=== PATIENT | male | born 1990 | race Caucasian/White ===

== ENCOUNTER 2016-05-02 16:27 | Emergency (ER) | payer OTHER ==
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
[2016-05-02] MEDS ORDERED: DIPH/PERTUSS(ACELL)/TETANUS VAC/PF 0.5 ML SYR (>=10YO) IM ONE (16:51)
[2016-05-02] MEDS ORDERED: OXYCODONE-ACETAMINOPHEN 5-325 MG TABLET PO ONE (16:51)
[2016-05-02] MEDS ORDERED: SILVER SULFADIAZINE 1% CREAM 50 GM TP ONE (18:29)
[2016-05-02] MEDS ORDERED: FENTANYL CITRATE INJ/PF 100 MCG/2 ML AMPUL IV ONE (18:29)
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
[2016-05-02 20:04] VITALS: BP 136/88
== END 2016-05-02 19:54 | disposition home or self-care (01) ==
LOC: ER 16:27
DX: T22.20XA Burn of second degree of shoulder and upper limb, except wrist and hand, unspecified site, initial encounter (principal); T65.91XA Toxic effect of unspecified substance, accidental (unintentional), initial encounter; M79.601 Pain in right arm; F17.200 Nicotine dependence, unspecified, uncomplicated
CPT/HCPCS: 99283; 90471; 90715; J3010; J3490